=== PATIENT | female | born 1995 | race Asian ===

== ENCOUNTER 2018-05-18 17:47 | Emergency (ER) | payer MEDICAID ==
[~2018-05-18] VITALS: Ht 154.9 cm; Wt 47.6 kg
--- NOTE | 2018-05-18 18:09 | Emergency Room Report ---
History of Present Illness General Chief Complaint: To Be Triaged Present Illness HPI 23-year-old female presents to the emergency department complaining of itching and infestation of the scalp/hair times one month. Patient reports increase in small white specks that are difficult to remove. Patient denies history of dandruff. Patient denies fevers, chills, rashes, swollen tender lymph nodes, erythema or warmth. Patient states she is up-to-date with vaccinations she denies ill contacts or recent travel. Denies lesions/rashes elsewhere on the body. Denies new medications or body washes or creams. Denies swelling of the lips, tongue , throat or airway. Denies wheezing, or shortness of breath. Denies blisters, oral lesions, or sloughing of the skin. Allergies: Coded Allergies: No Known Allergies (Unverified , 05/18/18) Patient History Past Medical History: see triage record Past Surgical History: none Pertinent Family History: none Now: No Immunizations: UTD Reviewed Nursing Documentation: PMH: Agreed; PSxH: Agreed Review of Systems All Other Systems: negative except mentioned in HPI Physical Exam Sp02 EP Interpretation: reviewed, normal General Appearance: no apparent distress, alert, GCS 15, non-toxic Head: normocephalic, atraumatic Eyes: bilateral eye normal inspection, bilateral eye PERRL ENT: hearing grossly normal, normal pharynx, no angioedema, normal voice Neck: full range of motion Respiratory: lungs clear, normal breath sounds, no wheezing, speaking full sentences Cardiovascular #1: regular rate, rhythm Musculoskeletal: back normal, gait/station normal, normal range of motion, non- tender Neurologic: alert, oriented x3, responsive, motor strength/tone normal, sensory intact, speech normal, grossly normal Psychiatric: judgement/insight normal Skin: normal color, no rash, warm/dry, well hydrated, other - numerous small white nits noted throughout hair. no obvious areas of acute infection, no warmth or erythema, no alopecia, no blisters or vessicles Lymphatic: no adenopathy Medical Decision Making PA Attestation Dr. Rouse is my supervising Physician whom patient management has been discussed with. Diagnostic Impression: Primary Impression: Lice ER Course 23-year-old female presents to the emergency department complaining of itching and infestation of the scalp/hair times one month. Patient reports increase in small white specks that are difficult to remove. Patient denies history of dandruff. Patient denies fevers, chills, rashes, swollen tender lymph nodes, erythema or warmth. Patient states she is up-to-date with vaccinations she denies ill contacts or recent travel. Denies lesions/rashes elsewhere on the body. Denies new medications or body washes or creams. Denies swelling of the lips, tongue , throat or airway. Denies wheezing, or shortness of breath. Denies blisters, oral lesions, or sloughing of the skin. Ddx considered but are not limited to cellulitis, scabies, Lice, shingles, varicella, dermatitis, urticaria, eczema, tinea, viral exanthem, SJS Vital signs: are WNL, pt. is afebrile H&PE are most consistent with Head Lice infestation ORDERS: none required at this time, the diagnosis is clinical ED INTERVENTIONS: None required at this time. d/w pt. conservative treatment, and to follow up with a primary care provider. pt given a list of primary care clinics for follow up. d/w pt. to return to the ED with worsening or new symptoms. DISCHARGE: At this time pt. is stable for d/c to home. Will provide printed patient care instructions, and any necessary prescriptions. Care plan and follow up instructions have been discussed with the patient prior to discharge. Disposition: HOME, SELF-CARE Condition: Stable Scripts Permethrin (LICE KILLING) 240 Ml Liquid 240 ML TP DAILY PRN for Per rx protocol, #240 ML Prov: Susana Smith 05/18/18 Patient Instructions: Lice, Adult Additional Instructions: Take medications as directed. Follow up with a Primary Care Provider in 3-5 days, even if your symptoms have resolved. --Please review list of primary care clinics, if you do not already have a primary care provider Return sooner to ED if new symptoms occur, or current symptoms become worse. - Please note that this Emergency Department Report was dictated using [employer] technology software, occasionally this can lead to erroneous entry secondary to interpretation by the dictation equipment. Susana Smith May 18, 2018 18:09
[2018-05-18] MEDS ORDERED: [UNRECOGNIZED DRUG - OTHER] TP (18:12)
[2018-05-18 18:28] VITALS: BP 104/61
== END 2018-05-18 18:30 | disposition home or self-care (01) ==
LOC: EMR 18:19
DX: B85.0 Pediculosis due to Pediculus humanus capitis (principal)
CPT/HCPCS: 99282